=== PATIENT | male | born 1990 | race Caucasian/White ===

== ENCOUNTER 2019-03-09 13:00 | Outpatient (RCR) | payer OTHER, SELFPAY ==
--- NOTE | 2019-01-25 16:52 | PT.OPPOC ---
Current Diagnoses Lower abdominal pain, unspecified (01/25/19) Provider Visit Care Team Role Provider Type Stefano Bull Attending Provider Non-Staff Primary Care Provider Specialty: Medical Address: [employer], [address] [place] [address] [employer] [address], [place], [address] Fax: Email: Plan Of Care PT-OP-T Assessment and Plan Start: 01/24/19 16:32 Freq: Status: Active Protocol: Document 01/25/19 13:44 [facility] (Rec: 01/26/19 07:48 [facility] [id number]) Physical Therapy Assessment Rehab Potential Rehabilitation Potential Good Evaluation Complexity Number of Personal Factors/Comorbidities 3 or More Number of Body Systems Impaired 4 or More Clinical Presentation at Evaluation Evolving Impairments Impairments Activity Tolerance Functional Activities Functional Mobility Gait Pain Posture ROM Soft Tissue Mobility Strength Goals pain Impairment pain Short Term Goal (STG) Pt will be indep with self myofascial release in order to work on scar restrictions at home. STG Duration 02/25/19 Snf Goal (LTG) Pt will be able to have BM, sexual activity, workout and do his typical daily activities without inc pain. LTG Duration 03/27/19 strength Impairment strength Short Term Goal (STG) Pt will be indep with HEP STG Duration 02/25/19 [facility] Goal (LTG) Pt will have 5/5 B LE strength without pain allowing him to return to a gym program and lifting activities without pain. LTG Duration 03/27/19 range Impairment ROM Short Term Goal (STG) Pt will be able to inc hip ROM to 90 deg flex with knee bent without pain and feel HS stretch with SLR rather than ant groin/abdominal pain. STG Duration 02/25/19 Snf Goal (LTG) Pt will be able to have enough hip ROM allowing him to sit in a chair extended without inc in pain. LTG Duration 03/27/19 Assessment Summary Assessment Pt presents 2 years s/p bilateral inguinal hernia repair and 5 months s/p removal of mesh and replacement of new mesh. He underwent PT previously with focus on exercise & deep scar mobilization without much change. 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 He has noted pain with sexual activity, and with bowel movements. He would benefit from skilled PT to address these dyfunctions in order to improve his mobility and his overall activity tolerance. Physical Therapy Plan Frequency and Duration Frequency of Treatment 2x/Week Duration of Treatment 2 months Plan of Care Start Date 01/25/19 Plan of Care End Date 03/27/19 Therapeutic Interventions Therapeutic Interventions Aquatic Therapy Gait Training Home Exercise Program Joint Mobilizations Manual Therapy Neuromuscular Re-education Self-Care/Home Management Soft Tissue Mobilization Taping Therapeutic Activities Therapeutic Exercises Modalities Biofeedback Cold Pack/Ice Massage Hot Packs Next Visit Focus/Plan Next Note Type Treatment Note Next Visit Plan Work on core control, hip inf glide, STM to scar Plan of Care Dates Plan of Care Start Date 01/25/19 Plan of Care End Date 03/27/19 Please Sign and Return: I have reviewed this Plan of Care and certify that the skilled therapy services above are required to meet the patient?s needs. Physician Signature Date Printed Name and Credentials Clinical Instructor Signature Printed Name and Credentials
--- NOTE | 2019-01-25 17:52 | PT.OIE ---
Current Diagnoses Lower abdominal pain, unspecified (01/25/19) Provider Visit Care Team Role Provider Type Stefano Bull Attending Provider Non-Staff Primary Care Provider Specialty: Medical Address: [facility], [address] [place], [place] [address], [place], [address] Fax: Email: Physical Therapy Initial Evaluation PT-OP-A Visit Information Start: 01/24/19 16:32 Freq: Status: Active Protocol: Document 01/25/19 13:44 [facility] (Rec: 01/25/19 14:38 [facility] [id number]) Out-Patient Physical Therapy Visit Information Visit Information Visit Type Initial Evaluation Visit Start Time 13:45 Visit Stop Time 14:35 Total Visit Minutes 50 Visit Number 1 Number of PROMOTION SPECIALIST Visits 0 PT-OP-B Current Condition Start: 01/24/19 16:32 Freq: Status: Active Protocol: Document 01/25/19 13:44 [facility] (Rec: 01/25/19 14:38 [facility] [id number]) Current Condition History of Current Condition History of Current Condition January 2017 he had a double inguinal hernia repair and 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 When he came back 6 months later the pain had gotten bad and limited him signficantly. He tried PT where he did some light lifting and stretching, but it didn't help at all. Pt had surgery again Aug 08 2018 where they just replaced the mesh etc. [place], manual, stretching & strenghtening. Pt reports if he sits too long , lifts, or flying pain is worse but its been constant. Pt reports if he pushed himself too far with PT, he would get a sharp pain. Treatment Goals Patient/Caregiver Goals Get back to hiking, be able to backpack, back to a physical training that he can lift weights PT-OP-C Subjective Start: 01/24/19 16:32 Freq: Status: Active Protocol: Document 01/25/19 13:44 [facility] (Rec: 01/25/19 14:38 [facility] [id number]) OP-PT Pain Assessment Location lower abdomen Pain Location Details lower abdomen toward groin & along B lat iliac crests Scale Used Numeric (1 - 10) Description Sharp Description- Other 4 at lowest and 7 with aggrevation Frequency Constant Radiating Location to testicles Pain Aggravating Factors Sitting Other Pain Aggravating Factors gas, bowel movement, sexual activity, lifting, sleep on side Pain Alleviating Factors Medication Other Pain Alleviating Factors very extended child's pose PT-OP-F Manual Assessment Start: 01/24/19 16:32 Freq: Status: Active Protocol: Document 01/25/19 13:44 [facility] (Rec: 01/25/19 17:55 [facility] [id number]) Manual Assessments Soft Tissue Assessment Soft Tissue Mobility Assessment myofascial tightness across abdomen & lat iliac crests. Significant scar tissue formation under B scars with dec overall mobility Joint Mobility Assessment Joint Mobility Assessment Equal height illiac crests PT-OP-G Mobility & Gait Start: 01/24/19 16:32 Freq: Status: Active Protocol: Document 01/25/19 13:44 [facility] (Rec: 01/25/19 14:38 [facility] [id number]) OP Gait Assessment Comments Gait Comments Pt amb w/ stiffer and lack of pelvis movement on R jessie with excessive L rotation with push off. PT-OP-J Posture/Palpation/Skin Start: 01/24/19 16:32 Freq: Status: Active Protocol: Document 01/25/19 13:44 [facility] (Rec: 01/25/19 17:56 [facility] [id number]) Posture Evaluation Comments Posture Comments Inc kyphosis & forward rounding of shoulders PT-OP-K Range of Motion Start: 01/24/19 16:32 Freq: Status: Active Protocol: Document 01/25/19 13:44 [facility] (Rec: 01/25/19 14:38 [facility] [id number]) Lumbar Spine Range of Motion Lumbar Spine Active Degrees Flexion 75 Extension 45 Lateral Flexion Left 35 Lateral Flexion Right 35 Comments pull in R side w/ext & L SB; WNL rotation Hip Goniometric Range of Motion Hip Measured in Degrees Right Passive Flexion w/Knee Flexed 60 Straight Leg Raise 50 Left Passive Testing Position Supine Flexion w/Knee Flexed 56 Straight Leg Raise 53 PT-OP-L Special Tests Start: 01/24/19 16:32 Freq: Status: Active Protocol: Document 01/25/19 13:44 [facility] (Rec: 01/25/19 14:38 [facility] [id number]) Special Tests Lumbar Spine Special Tests Slump Test Results +on R PT-OP-M Strength Start: 01/24/19 16:32 Freq: Status: Active Protocol: Document 01/25/19 13:44 [facility] (Rec: 01/25/19 14:38 [facility] [id number]) Hip Strength Hip Manual Muscle Testing Right Flexion (L2) 4 Good Extension (S1) 3+ Fair+ Abduction 5 Normal External Rotation 4 Good Internal Rotation 4 Good Comments pain w/ flex & IR Left Flexion (L2) 5 Normal Extension (S1) 3+ Fair+ Abduction 5 Normal External Rotation 4+ Good+ Internal Rotation 4+ Good+ Comments Pain w/IR & ER & ext Knee Strength Knee Manual Muscle Testing Right Flexion (S2) 5 Normal Extension (L3) 5 Normal Left Flexion (S2) 5 Normal Extension (L3) 5 Normal PT-OP-Q Treatments Start: 01/24/19 16:32 Freq: Status: Active Protocol: Document 01/25/19 13:44 [facility] (Rec: 01/25/19 18:01 [facility] [id number]) Therapeutic Exercises Supine Exercises mickey test Supine Exercise Name stretch Side bilateral Reps/Minutes 30 sec Standing Exercises hip flexor s Standing Exercise Name stretch Side bilateral Reps/Minutes 30 sec hold Manual Therapy Treatment Soft Tissue Mobilization ant abdomen Body Location ant abdomen direct pulls Mobilization Type Myofascial Release Intensity/Depth Superficial Body Position Supine Comments w/pt edu of self gentle MFR PT-OP-T Assessment and Plan Start: 01/24/19 16:32 Freq: Status: Active Protocol: Document 01/25/19 13:44 [facility] (Rec: 01/26/19 07:48 [facility] [id number]) Physical Therapy Assessment Rehab Potential Rehabilitation Potential Good Evaluation Complexity Number of Personal Factors/Comorbidities 3 or More Number of Body Systems Impaired 4 or More Clinical Presentation at Evaluation Evolving Impairments Impairments Activity Tolerance Functional Activities Functional Mobility Gait Pain Posture ROM Soft Tissue Mobility Strength Goals pain Impairment pain Short Term Goal (STG) Pt will be indep with self myofascial release in order to work on scar restrictions at home. STG Duration 02/25/19 [facility] Goal (LTG) Pt will be able to have BM, sexual activity, workout and do his typical daily activities without inc pain. LTG Duration 03/27/19 strength Impairment strength Short Term Goal (STG) Pt will be indep with HEP STG Duration 02/25/19 [facility] Goal (LTG) Pt will have 5/5 B LE strength without pain allowing him to return to a gym program and lifting activities without pain. LTG Duration 03/27/19 range Impairment ROM Short Term Goal (STG) Pt will be able to inc hip ROM to 90 deg flex with knee bent without pain and feel HS stretch with SLR rather than ant groin/abdominal pain. STG Duration 02/25/19 [facility] Goal (LTG) Pt will be able to have enough hip ROM allowing him to sit in a chair extended without inc in pain. LTG Duration 03/27/19 Assessment Summary Assessment Pt presents 2 years s/p bilateral inguinal hernia repair and 5 months s/p removal of mesh and replacement of new mesh. He underwent PT previously with focus on exercise & deep scar mobilization without much change. 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 He has noted pain with sexual activity, and with bowel movements. He would benefit from skilled PT to address these dyfunctions in order to improve his mobility and his overall activity tolerance. Physical Therapy Plan Frequency and Duration Frequency of Treatment 2x/Week Duration of Treatment 2 months Plan of Care Start Date 01/25/19 Plan of Care End Date 03/27/19 Therapeutic Interventions Therapeutic Interventions Aquatic Therapy Gait Training Home Exercise Program Joint Mobilizations Manual Therapy Neuromuscular Re-education Self-Care/Home Management Soft Tissue Mobilization Taping Therapeutic Activities Therapeutic Exercises Modalities Biofeedback Cold Pack/Ice Massage Hot Packs Next Visit Focus/Plan Next Note Type Treatment Note Next Visit Plan Work on core control, hip inf glide, STM to scar
--- NOTE | 2019-01-26 07:48 | PT.OIE ---
Current Diagnoses Lower abdominal pain, unspecified (01/25/19) Provider Visit Care Team Role Provider Type Stefano Bull Attending Provider Non-Staff Primary Care Provider Specialty: Medical Address: [employer] [facility], [address] [place], [place] [address], [place], [address] Fax: Email: Physical Therapy Initial Evaluation PT-OP-A Visit Information Start: 01/24/19 16:32 Freq: Status: Active Protocol: Document 01/25/19 13:44 [facility] (Rec: 01/25/19 14:38 [facility] [id number]) Out-Patient Physical Therapy Visit Information Visit Information Visit Type Initial Evaluation Visit Start Time 13:45 Visit Stop Time 14:35 Total Visit Minutes 50 Visit Number 1 Number of MATERIAL ATTENDANT Visits 0 PT-OP-B Current Condition Start: 01/24/19 16:32 Freq: Status: Active Protocol: Document 01/25/19 13:44 [facility] (Rec: 01/25/19 14:38 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 When he came back 6 months later the pain had gotten bad and limited him signficantly. He tried PT where he did some light lifting and stretching, but it didn't help at all. Pt had surgery again Aug 08 2018 where they just replaced the mesh etc. [place], manual, stretching & strenghtening. Pt reports if he sits too long , lifts, or flying pain is worse but its been constant. Pt reports if he pushed himself too far with PT, he would get a sharp pain. Treatment Goals Patient/Caregiver Goals Get back to hiking, be able to backpack, back to a physical training that he can lift weights PT-OP-C Subjective Start: 01/24/19 16:32 Freq: Status: Active Protocol: Document 01/25/19 13:44 [facility] (Rec: 01/25/19 14:38 [facility] [id number]) OP-PT Pain Assessment Location lower abdomen Pain Location Details lower abdomen toward groin & along B lat iliac crests Scale Used Numeric (1 - 10) Description Sharp Description- Other 4 at lowest and 7 with aggrevation Frequency Constant Radiating Location to testicles Pain Aggravating Factors Sitting Other Pain Aggravating Factors gas, bowel movement, sexual activity, lifting, sleep on side Pain Alleviating Factors Medication Other Pain Alleviating Factors very extended child's pose PT-OP-F Manual Assessment Start: 01/24/19 16:32 Freq: Status: Active Protocol: Document 01/25/19 13:44 [facility] (Rec: 01/25/19 17:55 [facility] [id number]) Manual Assessments Soft Tissue Assessment Soft Tissue Mobility Assessment myofascial tightness across abdomen & lat iliac crests. Significant scar tissue formation under B scars with dec overall mobility Joint Mobility Assessment Joint Mobility Assessment Equal height illiac crests PT-OP-G Mobility & Gait Start: 01/24/19 16:32 Freq: Status: Active Protocol: Document 01/25/19 13:44 [facility] (Rec: 01/25/19 14:38 [facility] [id number]) OP Gait Assessment Comments Gait Comments Pt amb w/ stiffer and lack of pelvis movement on R jessie with excessive L rotation with push off. PT-OP-J Posture/Palpation/Skin Start: 01/24/19 16:32 Freq: Status: Active Protocol: Document 01/25/19 13:44 [facility] (Rec: 01/25/19 17:56 [facility] [id number]) Posture Evaluation Comments Posture Comments Inc kyphosis & forward rounding of shoulders PT-OP-K Range of Motion Start: 01/24/19 16:32 Freq: Status: Active Protocol: Document 01/25/19 13:44 [facility] (Rec: 01/25/19 14:38 [facility] [id number]) Lumbar Spine Range of Motion Lumbar Spine Active Degrees Flexion 75 Extension 45 Lateral Flexion Left 35 Lateral Flexion Right 35 Comments pull in R side w/ext & L SB; WNL rotation Hip Goniometric Range of Motion Hip Measured in Degrees Right Passive Flexion w/Knee Flexed 60 Straight Leg Raise 50 Left Passive Testing Position Supine Flexion w/Knee Flexed 56 Straight Leg Raise 53 PT-OP-L Special Tests Start: 01/24/19 16:32 Freq: Status: Active Protocol: Document 01/25/19 13:44 [facility] (Rec: 01/25/19 14:38 [facility] [id number]) Special Tests Lumbar Spine Special Tests Slump Test Results +on R PT-OP-M Strength Start: 01/24/19 16:32 Freq: Status: Active Protocol: Document 01/25/19 13:44 [facility] (Rec: 01/25/19 14:38 [facility] [id number]) Hip Strength Hip Manual Muscle Testing Right Flexion (L2) 4 Good Extension (S1) 3+ Fair+ Abduction 5 Normal External Rotation 4 Good Internal Rotation 4 Good Comments pain w/ flex & IR Left Flexion (L2) 5 Normal Extension (S1) 3+ Fair+ Abduction 5 Normal External Rotation 4+ Good+ Internal Rotation 4+ Good+ Comments Pain w/IR & ER & ext Knee Strength Knee Manual Muscle Testing Right Flexion (S2) 5 Normal Extension (L3) 5 Normal Left Flexion (S2) 5 Normal Extension (L3) 5 Normal PT-OP-Q Treatments Start: 01/24/19 16:32 Freq: Status: Active Protocol: Document 01/25/19 13:44 [facility] (Rec: 01/25/19 18:01 [facility] [id number]) Therapeutic Exercises Supine Exercises mickey test Supine Exercise Name stretch Side bilateral Reps/Minutes 30 sec Standing Exercises hip flexor s Standing Exercise Name stretch Side bilateral Reps/Minutes 30 sec hold Manual Therapy Treatment Soft Tissue Mobilization ant abdomen Body Location ant abdomen direct pulls Mobilization Type Myofascial Release Intensity/Depth Superficial Body Position Supine Comments w/pt edu of self gentle MFR PT-OP-T Assessment and Plan Start: 01/24/19 16:32 Freq: Status: Active Protocol: Document 01/25/19 13:44 [facility] (Rec: 01/26/19 07:48 [facility] [id number]) Physical Therapy Assessment Rehab Potential Rehabilitation Potential Good Evaluation Complexity Number of Personal Factors/Comorbidities 3 or More Number of Body Systems Impaired 4 or More Clinical Presentation at Evaluation Evolving Impairments Impairments Activity Tolerance Functional Activities Functional Mobility Gait Pain Posture ROM Soft Tissue Mobility Strength Goals pain Impairment pain Short Term Goal (STG) Pt will be indep with self myofascial release in order to work on scar restrictions at home. STG Duration 02/25/19 [facility] Goal (LTG) Pt will be able to have BM, sexual activity, workout and do his typical daily activities without inc pain. LTG Duration 03/27/19 strength Impairment strength Short Term Goal (STG) Pt will be indep with HEP STG Duration 02/25/19 [facility] Goal (LTG) Pt will have 5/5 B LE strength without pain allowing him to return to a gym program and lifting activities without pain. LTG Duration 03/27/19 range Impairment ROM Short Term Goal (STG) Pt will be able to inc hip ROM to 90 deg flex with knee bent without pain and feel HS stretch with SLR rather than ant groin/abdominal pain. STG Duration 02/25/19 [facility] Goal (LTG) Pt will be able to have enough hip ROM allowing him to sit in a chair extended without inc in pain. LTG Duration 03/27/19 Assessment Summary Assessment Pt presents 2 years s/p bilateral inguinal hernia repair and 5 months s/p removal of mesh and replacement of new mesh. He underwent PT previously with focus on exercise & deep scar mobilization without much change. 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 He has noted pain with sexual activity, and with bowel movements. He would benefit from skilled PT to address these dyfunctions in order to improve his mobility and his overall activity tolerance. Physical Therapy Plan Frequency and Duration Frequency of Treatment 2x/Week Duration of Treatment 2 months Plan of Care Start Date 01/25/19 Plan of Care End Date 03/27/19 Therapeutic Interventions Therapeutic Interventions Aquatic Therapy Gait Training Home Exercise Program Joint Mobilizations Manual Therapy Neuromuscular Re-education Self-Care/Home Management Soft Tissue Mobilization Taping Therapeutic Activities Therapeutic Exercises Modalities Biofeedback Cold Pack/Ice Massage Hot Packs Next Visit Focus/Plan Next Note Type Treatment Note Next Visit Plan Work on core control, hip inf glide, STM to scar
--- NOTE | 2019-01-26 07:48 | PT.OPPOC ---
Current Diagnoses Lower abdominal pain, unspecified (01/25/19) Provider Visit Care Team Role Provider Type Stefano Bull Attending Provider Non-Staff Primary Care Provider Specialty: Medical Address: [facility], [address] [place] [address] [employer] [address], [place], [address] Fax: Email: Plan Of Care PT-OP-T Assessment and Plan Start: 01/24/19 16:32 Freq: Status: Active Protocol: Document 01/25/19 13:44 [facility] (Rec: 01/26/19 07:48 [facility] [id number]) Physical Therapy Assessment Rehab Potential Rehabilitation Potential Good Evaluation Complexity Number of Personal Factors/Comorbidities 3 or More Number of Body Systems Impaired 4 or More Clinical Presentation at Evaluation Evolving Impairments Impairments Activity Tolerance Functional Activities Functional Mobility Gait Pain Posture ROM Soft Tissue Mobility Strength Goals pain Impairment pain Short Term Goal (STG) Pt will be indep with self myofascial release in order to work on scar restrictions at home. STG Duration 02/25/19 Assisted Goal (LTG) Pt will be able to have BM, sexual activity, workout and do his typical daily activities without inc pain. LTG Duration 03/27/19 strength Impairment strength Short Term Goal (STG) Pt will be indep with HEP STG Duration 02/25/19 [facility] Goal (LTG) Pt will have 5/5 B LE strength without pain allowing him to return to a gym program and lifting activities without pain. LTG Duration 03/27/19 range Impairment ROM Short Term Goal (STG) Pt will be able to inc hip ROM to 90 deg flex with knee bent without pain and feel HS stretch with SLR rather than ant groin/abdominal pain. STG Duration 02/25/19 Assisted Goal (LTG) Pt will be able to have enough hip ROM allowing him to sit in a chair extended without inc in pain. LTG Duration 03/27/19 Assessment Summary Assessment Pt presents 2 years s/p bilateral inguinal hernia repair and 5 months s/p removal of mesh and replacement of new mesh. He underwent PT previously with focus on exercise & deep scar mobilization without much change. 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 He has noted pain with sexual activity, and with bowel movements. He would benefit from skilled PT to address these dyfunctions in order to improve his mobility and his overall activity tolerance. Physical Therapy Plan Frequency and Duration Frequency of Treatment 2x/Week Duration of Treatment 2 months Plan of Care Start Date 01/25/19 Plan of Care End Date 03/27/19 Therapeutic Interventions Therapeutic Interventions Aquatic Therapy Gait Training Home Exercise Program Joint Mobilizations Manual Therapy Neuromuscular Re-education Self-Care/Home Management Soft Tissue Mobilization Taping Therapeutic Activities Therapeutic Exercises Modalities Biofeedback Cold Pack/Ice Massage Hot Packs Next Visit Focus/Plan Next Note Type Treatment Note Next Visit Plan Work on core control, hip inf glide, STM to scar Plan of Care Dates Plan of Care Start Date 01/25/19 Plan of Care End Date 03/27/19 Please Sign and Return: I have reviewed this Plan of Care and certify that the skilled therapy services above are required to meet the patient?s needs. Physician Signature Date Printed Name and Credentials Clinical Instructor Signature Printed Name and Credentials
--- NOTE | 2019-01-31 15:05 | PT.OTN ---
Current Diagnoses Lower abdominal pain, unspecified (01/31/19) Physical Therapy Treatment Note PT-OP-A Visit Information Start: 01/24/19 16:32 Freq: Status: Active Protocol: Document 01/31/19 13:02 [facility] (Rec: 01/31/19 13:45 [facility] [id number]) Out-Patient Physical Therapy Visit Information Visit Information Visit Type Treatment Note Visit Start Time 13:00 Visit Stop Time 13:45 Total Visit Minutes 45 Visit Number 2 Number of PHYSICAL TRAINER Visits 0 PT-OP-B Current Condition Start: 01/24/19 16:32 Freq: Status: Active Protocol: Document 01/25/19 13:44 [facility] (Rec: 01/25/19 14:38 [facility] [id number]) Current Condition History of Current Condition History of Current Condition January 2017 he had a double inguinal hernia repair and 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 When he came back 6 months later the pain had gotten bad and limited him signficantly. He tried PT where he did some light lifting and stretching, but it didn't help at all. Pt had surgery again Aug 08 2018 where they just replaced the mesh etc. [place] cardio, manual, stretching & strenghtening. Pt reports if he sits too long , lifts, or flying pain is worse but its been constant. Pt reports if he pushed himself too far with PT, he would get a sharp pain. Treatment Goals Patient/Caregiver Goals Get back to hiking, be able to backpack, back to a physical training that he can lift weights PT-OP-C Subjective Start: 01/24/19 16:32 Freq: Status: Active Protocol: Document 01/31/19 13:02 [facility] (Rec: 01/31/19 13:45 [facility] [id number]) OP-PT Subjective Patient Comments Patient Comments Pt reports soreness after last session. Reports stretches help a lot. PT-OP-F Manual Assessment Start: 01/24/19 16:32 Freq: Status: Active Protocol: Document 01/25/19 13:44 [facility] (Rec: 01/25/19 17:55 [facility] [id number]) Manual Assessments Soft Tissue Assessment Soft Tissue Mobility Assessment myofascial tightness across abdomen & lat iliac crests. Significant scar tissue formation under B scars with dec overall mobility Joint Mobility Assessment Joint Mobility Assessment Equal height illiac crests PT-OP-G Mobility & Gait Start: 01/24/19 16:32 Freq: Status: Active Protocol: Document 01/25/19 13:44 [facility] (Rec: 01/25/19 14:38 [facility] [id number]) OP Gait Assessment Comments Gait Comments Pt amb w/ stiffer and lack of pelvis movement on R jessie with excessive L rotation with push off. PT-OP-J Posture/Palpation/Skin Start: 01/24/19 16:32 Freq: Status: Active Protocol: Document 01/25/19 13:44 [facility] (Rec: 01/25/19 17:56 [facility] [email or web address]) Posture Evaluation Comments Posture Comments Inc kyphosis & forward rounding of shoulders PT-OP-K Range of Motion Start: 01/24/19 16:32 Freq: Status: Active Protocol: Document 01/25/19 13:44 [facility] (Rec: 01/25/19 14:38 [facility] [id number]) Lumbar Spine Range of Motion Lumbar Spine Active Degrees Flexion 75 Extension 45 Lateral Flexion Left 35 Lateral Flexion Right 35 Comments pull in R side w/ext & L SB; WNL rotation Hip Goniometric Range of Motion Hip Measured in Degrees Right Passive Flexion w/Knee Flexed 60 Straight Leg Raise 50 Left Passive Testing Position Supine Flexion w/Knee Flexed 56 Straight Leg Raise 53 PT-OP-L Special Tests Start: 01/24/19 16:32 Freq: Status: Active Protocol: Document 01/25/19 13:44 [facility] (Rec: 01/25/19 14:38 [facility] [id number]) Special Tests Lumbar Spine Special Tests Slump Test Results +on R PT-OP-M Strength Start: 01/24/19 16:32 Freq: Status: Active Protocol: Document 01/25/19 13:44 [facility] (Rec: 01/25/19 14:38 [facility] [id number]) Hip Strength Hip Manual Muscle Testing Right Flexion (L2) 4 Good Extension (S1) 3+ Fair+ Abduction 5 Normal External Rotation 4 Good Internal Rotation 4 Good Comments pain w/ flex & IR Left Flexion (L2) 5 Normal Extension (S1) 3+ Fair+ Abduction 5 Normal External Rotation 4+ Good+ Internal Rotation 4+ Good+ Comments Pain w/IR & ER & ext Knee Strength Knee Manual Muscle Testing Right Flexion (S2) 5 Normal Extension (L3) 5 Normal Left Flexion (S2) 5 Normal Extension (L3) 5 Normal PT-OP-Q Treatments Start: 01/24/19 16:32 Freq: Status: Active Protocol: Document 01/31/19 13:02 [facility] (Rec: 01/31/19 15:04 [facility] [id number]) Therapeutic Exercises Supine Exercises hip flex Supine Exercise Name isometric BLE press Side bilateral Reps/Minutes 30 sec bridge Supine Exercise Name bridge w/alt knee ext Side bilateral Reps/Minutes 15 Standing Exercises wall posture Standing Exercise Name wall roll up with 90/90 ER of UE Reps/Minutes 10 Therapeutic Activity Therapeutic Activity sitting posture Name supported and unsupported positioning Manual Therapy Treatment Soft Tissue Mobilization iliacus Body Location iliacus Mobilization Type Sustained Pressure ant abdomen Body Location ant abdomen direct pulls Mobilization Type Myofascial Release Intensity/Depth Superficial Body Position Supine Comments w/LE ER/IR in hooklying & pelvic tilts Joint Mobilizations hip Joint hip Direction inf functional mobilization (c /r) B PT-OP-T Assessment and Plan Start: 01/24/19 16:32 Freq: Status: Active Protocol: Document 01/31/19 13:02 [facility] (Rec: 01/31/19 15:04 [facility] [email or web address]) Physical Therapy Assessment Goals pain Impairment pain Short Term Goal (STG) Pt will be indep with self myofascial release in order to work on scar restrictions at home. STG Duration 02/25/19 Penitentiary Goal (LTG) Pt will be able to have BM, sexual activity, workout and do his typical daily activities without inc pain. LTG Duration 03/27/19 strength Impairment strength Short Term Goal (STG) Pt will be indep with HEP STG Duration 02/25/19 Penitentiary Goal (LTG) Pt will have 5/5 B LE strength without pain allowing him to return to a gym program and lifting activities without pain. LTG Duration 03/27/19 range Impairment ROM Short Term Goal (STG) Pt will be able to inc hip ROM to 90 deg flex with knee bent without pain and feel HS stretch with SLR rather than ant groin/abdominal pain. STG Duration 02/25/19 Radon Inspector Goal (LTG) Pt will be able to have enough hip ROM allowing him to sit in a chair extended without inc in pain. LTG Duration 03/27/19 Assessment Summary Assessment Pt able to tolerate progression of exercises today w/o c/o pain. Pt had improved hip flex from ~70 deg B (w/ alt knee flex & foot on table) to about 110 degrees after iliacus mobilization & hip inf glide. Physical Therapy Plan Frequency and Duration Frequency of Treatment 2x/Week Duration of Treatment 2 months Plan of Care Start Date 01/25/19 Plan of Care End Date 03/27/19 Next Visit Focus/Plan Next Note Type Treatment Note Next Visit Plan cont to work on fascial mobility, cont to advance stability & flexibility
--- NOTE | 2019-02-03 15:13 | PT.OTN ---
Current Diagnoses Lower abdominal pain, unspecified (02/03/19) Physical Therapy Treatment Note PT-OP-A Visit Information Start: 01/24/19 16:32 Freq: Status: Active Protocol: Document 02/03/19 13:00 AMB (Rec: 02/03/19 15:13 [facility] [email or web address]) Out-Patient Physical Therapy Visit Information Visit Information Visit Type Treatment Note Visit Start Time 13:00 Visit Stop Time 13:45 Total Visit Minutes 45 Visit Number 3 Number of SLICER MACHINE OPERATOR Visits 0 PT-OP-B Current Condition Start: 01/24/19 16:32 Freq: Status: Active Protocol: Document 01/25/19 13:44 [facility] (Rec: 01/25/19 14:38 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 When he came back 6 months later the pain had gotten bad and limited him signficantly. He tried PT where he did some light lifting and stretching, but it didn't help at all. Pt had surgery again Aug 08 2018 where they just replaced the mesh etc. [place] and did cardio, manual, stretching & strenghtening. Pt reports if he sits too long , lifts, or flying pain is worse but its been constant. Pt reports if he pushed himself too far with PT, he would get a sharp pain. Treatment Goals Patient/Caregiver Goals Get back to hiking, be able to backpack, back to a physical training that he can lift weights PT-OP-C Subjective Start: 01/24/19 16:32 Freq: Status: Active Protocol: Document 02/03/19 13:00 AMB (Rec: 02/03/19 15:13 AMB [email or web address]) OP-PT Subjective Patient Comments Patient Comments Pt reports felt pretty good after last session, is definitely icing at home afterwards. Seeing this PT because reported painful bowel movements and painful intercourse during eval. Pt states that pain with bowel movement and intercourse is at surgery sites and slightly more distally into hips. Does report intermittent tingling/ decreased sensation distal to surgery site but not in perineal or genital area. Thinks that pain with intercourse is more movement related, denies specific pain with ejaculation, more the pain of moving. Does report pain when both bowel and bladder are full, describes pain as a pressure over lower abdomen at at surgical sites. PT-OP-F Manual Assessment Start: 01/24/19 16:32 Freq: Status: Active Protocol: Document 01/25/19 13:44 [facility] (Rec: 01/25/19 17:55 [facility] [id number]) Manual Assessments Soft Tissue Assessment Soft Tissue Mobility Assessment myofascial tightness across abdomen & lat iliac crests. Significant scar tissue formation under B scars with dec overall mobility Joint Mobility Assessment Joint Mobility Assessment Equal height illiac crests PT-OP-G Mobility & Gait Start: 01/24/19 16:32 Freq: Status: Active Protocol: Document 01/25/19 13:44 [facility] (Rec: 01/25/19 14:38 [facility] [id number]) OP Gait Assessment Comments Gait Comments Pt amb w/ stiffer and lack of pelvis movement on R jessie with excessive L rotation with push off. PT-OP-J Posture/Palpation/Skin Start: 01/24/19 16:32 Freq: Status: Active Protocol: Document 01/25/19 13:44 [facility] (Rec: 01/25/19 17:56 [facility] [id number]) Posture Evaluation Comments Posture Comments Inc kyphosis & forward rounding of shoulders PT-OP-K Range of Motion Start: 01/24/19 16:32 Freq: Status: Active Protocol: Document 01/25/19 13:44 [facility] (Rec: 01/25/19 14:38 [facility] [id number]) Lumbar Spine Range of Motion Lumbar Spine Active Degrees Flexion 75 Extension 45 Lateral Flexion Left 35 Lateral Flexion Right 35 Comments pull in R side w/ext & L SB; WNL rotation Hip Goniometric Range of Motion Hip Measured in Degrees Right Passive Flexion w/Knee Flexed 60 Straight Leg Raise 50 Left Passive Testing Position Supine Flexion w/Knee Flexed 56 Straight Leg Raise 53 PT-OP-L Special Tests Start: 01/24/19 16:32 Freq: Status: Active Protocol: Document 01/25/19 13:44 [facility] (Rec: 01/25/19 14:38 [facility] [id number]) Special Tests Lumbar Spine Special Tests Slump Test Results +on R PT-OP-M Strength Start: 01/24/19 16:32 Freq: Status: Active Protocol: Document 01/25/19 13:44 [facility] (Rec: 01/25/19 14:38 [facility] [id number]) Hip Strength Hip Manual Muscle Testing Right Flexion (L2) 4 Good Extension (S1) 3+ Fair+ Abduction 5 Normal External Rotation 4 Good Internal Rotation 4 Good Comments pain w/ flex & IR Left Flexion (L2) 5 Normal Extension (S1) 3+ Fair+ Abduction 5 Normal External Rotation 4+ Good+ Internal Rotation 4+ Good+ Comments Pain w/IR & ER & ext Knee Strength Knee Manual Muscle Testing Right Flexion (S2) 5 Normal Extension (L3) 5 Normal Left Flexion (S2) 5 Normal Extension (L3) 5 Normal PT-OP-Q Treatments Start: 01/24/19 16:32 Freq: Status: Active Protocol: Document 02/03/19 13:00 AMB (Rec: 02/03/19 15:13 AMB [email or web address]) Therapeutic Exercises Supine Exercises hip flex Supine Exercise Name isometric BLE press Side bilateral Reps/Minutes 30 sec mickey test Supine Exercise Name stretch Side bilateral Reps/Minutes 30 sec Manual Therapy Treatment Soft Tissue Mobilization 1 Body Location ILU circular massage Comments instructed in self massage for when feeling bowel/bladder pressure iliacus Body Location iliacus Mobilization Type Sustained Pressure ant abdomen Body Location ant abdomen direct pulls Mobilization Type Myofascial Release Intensity/Depth Superficial Body Position Supine Comments pelvic tilts, PT-OP-T Assessment and Plan Start: 01/24/19 16:32 Freq: Status: Active Protocol: Document 02/03/19 13:00 AMB (Rec: 02/03/19 15:13 AMB [email or web address]) Physical Therapy Assessment Assessment Summary Assessment Pt did have pain today with direct pressure over scar tissue, did report pain over hip flexor with hip flexion AROM. Instructed in bowel massage, and nature of scar tissue, neural entrapment. Physical Therapy Plan Next Visit Focus/Plan Next Note Type Treatment Note Next Visit Plan cont to work on fascial mobility, cont to advance stability & flexibility
--- NOTE | 2019-02-09 16:25 | PT.OTN ---
Current Diagnoses Lower abdominal pain, unspecified (02/09/19) Physical Therapy Treatment Note PT-OP-A Visit Information Start: 01/24/19 16:32 Freq: Status: Active Protocol: Document 02/09/19 13:45 AMB (Rec: 02/09/19 16:25 AMB [email or web address]) Out-Patient Physical Therapy Visit Information Visit Information Visit Type Treatment Note Visit Start Time 13:00 Visit Stop Time 13:45 Total Visit Minutes 45 Visit Number 4 Number of ROLL FORMING MACHINE SET UP MECHANIC Visits 0 PT-OP-B Current Condition Start: 01/24/19 16:32 Freq: Status: Active Protocol: Document 01/25/19 13:44 [facility] (Rec: 01/25/19 14:38 [facility] [id number]) Current Condition History of Current Condition History of Current Condition January 2017 he had a double inguinal hernia repair and 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 When he came back 6 months later the pain had gotten bad and limited him signficantly. He tried PT where he did some light lifting and stretching, but it didn't help at all. Pt had surgery again Aug 08 2018 where they just replaced the mesh etc. [place] did cardio, manual, stretching & strenghtening. Pt reports if he sits too long , lifts, or flying pain is worse but its been constant. Pt reports if he pushed himself too far with PT, he would get a sharp pain. Treatment Goals Patient/Caregiver Goals Get back to hiking, be able to backpack, back to a physical training that he can lift weights PT-OP-C Subjective Start: 01/24/19 16:32 Freq: Status: Active Protocol: Document 02/09/19 13:45 AMB (Rec: 02/09/19 16:25 AMB [email or web address]) OP-PT Subjective Patient Comments Patient Comments Pt reports increased soreness after last visit. Feels that scar tissue is different and less tight, but noticing more sharp pain with sidelying and sitting, especially on the right. PT-OP-F Manual Assessment Start: 01/24/19 16:32 Freq: Status: Active Protocol: Document 01/25/19 13:44 [facility] (Rec: 01/25/19 17:55 [facility] [email or web address]) Manual Assessments Soft Tissue Assessment Soft Tissue Mobility Assessment myofascial tightness across abdomen & lat iliac crests. Significant scar tissue formation under B scars with dec overall mobility Joint Mobility Assessment Joint Mobility Assessment Equal height illiac crests PT-OP-G Mobility & Gait Start: 01/24/19 16:32 Freq: Status: Active Protocol: Document 01/25/19 13:44 [facility] (Rec: 01/25/19 14:38 [facility] [id number]) OP Gait Assessment Comments Gait Comments Pt amb w/ stiffer and lack of pelvis movement on R jessie with excessive L rotation with push off. PT-OP-J Posture/Palpation/Skin Start: 01/24/19 16:32 Freq: Status: Active Protocol: Document 01/25/19 13:44 [facility] (Rec: 01/25/19 17:56 [facility] [email or web address]) Posture Evaluation Comments Posture Comments Inc kyphosis & forward rounding of shoulders PT-OP-K Range of Motion Start: 01/24/19 16:32 Freq: Status: Active Protocol: Document 01/25/19 13:44 [facility] (Rec: 01/25/19 14:38 [facility] [id number]) Lumbar Spine Range of Motion Lumbar Spine Active Degrees Flexion 75 Extension 45 Lateral Flexion Left 35 Lateral Flexion Right 35 Comments pull in R side w/ext & L SB; WNL rotation Hip Goniometric Range of Motion Hip Measured in Degrees Right Passive Flexion w/Knee Flexed 60 Straight Leg Raise 50 Left Passive Testing Position Supine Flexion w/Knee Flexed 56 Straight Leg Raise 53 PT-OP-L Special Tests Start: 01/24/19 16:32 Freq: Status: Active Protocol: Document 01/25/19 13:44 [facility] (Rec: 01/25/19 14:38 [facility] [id number]) Special Tests Lumbar Spine Special Tests Slump Test Results +on R PT-OP-M Strength Start: 01/24/19 16:32 Freq: Status: Active Protocol: Document 01/25/19 13:44 [facility] (Rec: 01/25/19 14:38 [facility] [id number]) Hip Strength Hip Manual Muscle Testing Right Flexion (L2) 4 Good Extension (S1) 3+ Fair+ Abduction 5 Normal External Rotation 4 Good Internal Rotation 4 Good Comments pain w/ flex & IR Left Flexion (L2) 5 Normal Extension (S1) 3+ Fair+ Abduction 5 Normal External Rotation 4+ Good+ Internal Rotation 4+ Good+ Comments Pain w/IR & ER & ext Knee Strength Knee Manual Muscle Testing Right Flexion (S2) 5 Normal Extension (L3) 5 Normal Left Flexion (S2) 5 Normal Extension (L3) 5 Normal PT-OP-Q Treatments Start: 01/24/19 16:32 Freq: Status: Active Protocol: Document 02/09/19 13:45 AMB (Rec: 02/09/19 16:25 AMB [email or web address]) Therapeutic Exercises Supine Exercises 2 Supine Exercise Name roll out Comments no resistance, but pt had pain 1 Supine Exercise Name transversus contract Reps/Minutes 5x10 hold Comments tends to bulge abs out mickey test Supine Exercise Name stretch Side bilateral Reps/Minutes 30 sec Manual Therapy Treatment Soft Tissue Mobilization ant abdomen Body Location ant abdomen direct pulls Mobilization Type Myofascial Release Intensity/Depth Superficial Body Position Supine Comments pelvic tilts, LE ER/ IR Manual Traction Long axis distraction Details R Body Position Supine Reps/Duration 15x2 Taping 1 Body Location kinesiotape Comments I strip over R scar, 50% stretch Other Other Manual Treatments contract relax hip flexion PT-OP-T Assessment and Plan Start: 01/24/19 16:32 Freq: Status: Active Protocol: Document 02/09/19 13:45 AMB (Rec: 02/09/19 16:25 AMB [email or web address]) Physical Therapy Assessment Assessment Summary Assessment Pt very tender today, so backed off on direct myofascial release over scars. Pt reports pain with most movement requiring abdominal stabilization today. Physical Therapy Plan Next Visit Focus/Plan Next Note Type Treatment Note Next Visit Plan cont to work on fascial mobility, cont to advance stability & flexibility
--- NOTE | 2019-02-16 15:53 | PT.OTN ---
Current Diagnoses Lower abdominal pain, unspecified (02/16/19) Physical Therapy Treatment Note PT-OP-A Visit Information Start: 01/24/19 16:32 Freq: Status: Active Protocol: Document 02/16/19 15:36 [facility] (Rec: 02/16/19 15:53 [facility] [id number]) Out-Patient Physical Therapy Visit Information Visit Information Visit Type Treatment Note Visit Start Time 14:30 Visit Stop Time 15:15 Total Visit Minutes 45 Visit Number 5 Number of SACK SORTER Visits 0 PT-OP-B Current Condition Start: 01/24/19 16:32 Freq: Status: Active Protocol: Document 01/25/19 13:44 [facility] (Rec: 01/25/19 14:38 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 When he came back 6 months later the pain had gotten bad and limited him signficantly. He tried PT where he did some light lifting and stretching, but it didn't help at all. Pt had surgery again Aug 08 2018 where they just replaced the mesh etc. [place] cardio, manual, stretching & strenghtening. Pt reports if he sits too long , lifts, or flying pain is worse but its been constant. Pt reports if he pushed himself too far with PT, he would get a sharp pain. Treatment Goals Patient/Caregiver Goals Get back to hiking, be able to backpack, back to a physical training that he can lift weights PT-OP-C Subjective Start: 01/24/19 16:32 Freq: Status: Active Protocol: Document 02/16/19 15:36 [facility] (Rec: 02/16/19 15:53 [facility] [id number]) OP-PT Subjective Patient Comments Patient Comments Pt reports he is not flared like he was last visit and is back to his baseline as when he came in to PT. He has been trying to work on posture and stretches at home. Sitting can flare up his nerve pain and he is trying to stand frequently at work to stretch PT-OP-F Manual Assessment Start: 01/24/19 16:32 Freq: Status: Active Protocol: Document 01/25/19 13:44 [facility] (Rec: 01/25/19 17:55 [facility] [id number]) Manual Assessments Soft Tissue Assessment Soft Tissue Mobility Assessment myofascial tightness across abdomen & lat iliac crests. Significant scar tissue formation under B scars with dec overall mobility Joint Mobility Assessment Joint Mobility Assessment Equal height illiac crests PT-OP-G Mobility & Gait Start: 01/24/19 16:32 Freq: Status: Active Protocol: Document 01/25/19 13:44 [facility] (Rec: 01/25/19 14:38 [facility] [id number]) OP Gait Assessment Comments Gait Comments Pt amb w/ stiffer and lack of pelvis movement on R jessie with excessive L rotation with push off. PT-OP-J Posture/Palpation/Skin Start: 01/24/19 16:32 Freq: Status: Active Protocol: Document 01/25/19 13:44 [facility] (Rec: 01/25/19 17:56 [facility] [id number]) Posture Evaluation Comments Posture Comments Inc kyphosis & forward rounding of shoulders PT-OP-K Range of Motion Start: 01/24/19 16:32 Freq: Status: Active Protocol: Document 01/25/19 13:44 [facility] (Rec: 01/25/19 14:38 [facility] [id number]) Lumbar Spine Range of Motion Lumbar Spine Active Degrees Flexion 75 Extension 45 Lateral Flexion Left 35 Lateral Flexion Right 35 Comments pull in R side w/ext & L SB; WNL rotation Hip Goniometric Range of Motion Hip Measured in Degrees Right Passive Flexion w/Knee Flexed 60 Straight Leg Raise 50 Left Passive Testing Position Supine Flexion w/Knee Flexed 56 Straight Leg Raise 53 PT-OP-L Special Tests Start: 01/24/19 16:32 Freq: Status: Active Protocol: Document 01/25/19 13:44 [facility] (Rec: 01/25/19 14:38 [facility] [id number]) Special Tests Lumbar Spine Special Tests Slump Test Results +on R PT-OP-M Strength Start: 01/24/19 16:32 Freq: Status: Active Protocol: Document 01/25/19 13:44 [facility] (Rec: 01/25/19 14:38 [facility] [id number]) Hip Strength Hip Manual Muscle Testing Right Flexion (L2) 4 Good Extension (S1) 3+ Fair+ Abduction 5 Normal External Rotation 4 Good Internal Rotation 4 Good Comments pain w/ flex & IR Left Flexion (L2) 5 Normal Extension (S1) 3+ Fair+ Abduction 5 Normal External Rotation 4+ Good+ Internal Rotation 4+ Good+ Comments Pain w/IR & ER & ext Knee Strength Knee Manual Muscle Testing Right Flexion (S2) 5 Normal Extension (L3) 5 Normal Left Flexion (S2) 5 Normal Extension (L3) 5 Normal PT-OP-Q Treatments Start: 01/24/19 16:32 Freq: Status: Active Protocol: Document 02/16/19 15:36 [facility] (Rec: 02/16/19 15:53 [facility] [email or web address]) Therapeutic Exercises Supine Exercises 3 Supine Exercise Name foam roll stretch Comments tried 1/2 roll first but Placido could not feel much stretch mickey test Supine Exercise Name stretch Side bilateral Reps/Minutes 1-2 min Comments no nerve pain, manual stretch Prone Exercises 1 Prone Exercise Name cobra stretch Manual Therapy Treatment Soft Tissue Mobilization 3 Body Location adductor release Comments myofascial tightness felt at the pubic ramus attachment on the right 2 Body Location MFR over the bladder Comments pt has c/o bladder urgency and pain increases with a full bladder 1 Body Location ILU circular massage Comments instructed in self massage for when feeling bowel/bladder pressure ant abdomen Body Location ant abdomen direct pulls Mobilization Type Myofascial Release Intensity/Depth Superficial Body Position Supine Comments pelvic tilts, LE ER/ IR PT-OP-T Assessment and Plan Start: 01/24/19 16:32 Freq: Status: Active Protocol: Document 02/16/19 15:36 [facility] (Rec: 02/16/19 15:53 [facility] [email or web address]) Physical Therapy Assessment Assessment Summary Assessment Placido was not in a flare up today so myofascial release was attempted again, I worked the myofascial tissue over the bladder, right greater than left abdominal wall and right adductors. He tolerated this all well. He is very tight in the right adductor attachment to the pubic ramus on the right side. We worked on iliopsoas stretching adding in some adductor stretch and also started the foam roll which he tolerated well today. Physical Therapy Plan Frequency and Duration Frequency of Treatment 2x/Week Duration of Treatment 2 months Plan of Care Start Date 01/25/19 Plan of Care End Date 03/27/19 Therapeutic Interventions Therapeutic Interventions Aquatic Therapy Gait Training Home Exercise Program Joint Mobilizations Manual Therapy Neuromuscular Re-education Self-Care/Home Management Soft Tissue Mobilization Taping Therapeutic Activities Therapeutic Exercises Modalities Biofeedback Cold Pack/Ice Massage Hot Packs Next Visit Focus/Plan Next Note Type Treatment Note Next Visit Plan continue to work on opening up the abdominal fascia and anterior ches. He can feel a stretch on the right side with right arm flexion so adding in stretching as tolerated would be beneficial
--- NOTE | 2019-02-24 13:21 | PT.OTN ---
Current Diagnoses Lower abdominal pain, unspecified (02/24/19) Physical Therapy Treatment Note PT-OP-A Visit Information Start: 01/24/19 16:32 Freq: Status: Active Protocol: Document 02/24/19 10:30 [facility] (Rec: 02/24/19 13:21 [facility] [email or web address]) Out-Patient Physical Therapy Visit Information Visit Information Visit Type Treatment Note Visit Start Time 10:30 Visit Stop Time 11:15 Total Visit Minutes 45 Visit Number 6 Number of SOFT SUGAR CUTTER Visits 1 PT-OP-B Current Condition Start: 01/24/19 16:32 Freq: Status: Active Protocol: Document 01/25/19 13:44 [facility] (Rec: 01/25/19 14:38 [facility] [id number]) Current Condition History of Current Condition History of Current Condition January 2017 he had a double inguinal hernia repair and 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 When he came back 6 months later the pain had gotten bad and limited him signficantly. He tried PT where he did some light lifting and stretching, but it didn't help at all. Pt had surgery again Aug 08 2018 where they just replaced the mesh etc. [place] did cardio, manual, stretching & strenghtening. Pt reports if he sits too long , lifts, or flying pain is worse but its been constant. Pt reports if he pushed himself too far with PT, he would get a sharp pain. Treatment Goals Patient/Caregiver Goals Get back to hiking, be able to backpack, back to a physical training that he can lift weights PT-OP-C Subjective Start: 01/24/19 16:32 Freq: Status: Active Protocol: Document 02/24/19 10:30 [facility] (Rec: 02/24/19 13:21 [facility] [email or web address]) OP-PT Subjective Patient Comments Patient Comments Pt states he feels decrease in tightness and has ordered a foam roll for stretching at home. PT-OP-F Manual Assessment Start: 01/24/19 16:32 Freq: Status: Active Protocol: Document 01/25/19 13:44 [facility] (Rec: 01/25/19 17:55 [facility] [email or web address]) Manual Assessments Soft Tissue Assessment Soft Tissue Mobility Assessment myofascial tightness across abdomen & lat iliac crests. Significant scar tissue formation under B scars with dec overall mobility Joint Mobility Assessment Joint Mobility Assessment Equal height illiac crests PT-OP-G Mobility & Gait Start: 01/24/19 16:32 Freq: Status: Active Protocol: Document 01/25/19 13:44 [facility] (Rec: 01/25/19 14:38 [facility] [id number]) OP Gait Assessment Comments Gait Comments Pt amb w/ stiffer and lack of pelvis movement on R jessie with excessive L rotation with push off. PT-OP-J Posture/Palpation/Skin Start: 01/24/19 16:32 Freq: Status: Active Protocol: Document 01/25/19 13:44 [facility] (Rec: 01/25/19 17:56 [facility] [id number]) Posture Evaluation Comments Posture Comments Inc kyphosis & forward rounding of shoulders PT-OP-K Range of Motion Start: 01/24/19 16:32 Freq: Status: Active Protocol: Document 01/25/19 13:44 [facility] (Rec: 01/25/19 14:38 [facility] [id number]) Lumbar Spine Range of Motion Lumbar Spine Active Degrees Flexion 75 Extension 45 Lateral Flexion Left 35 Lateral Flexion Right 35 Comments pull in R side w/ext & L SB; WNL rotation Hip Goniometric Range of Motion Hip Measured in Degrees Right Passive Flexion w/Knee Flexed 60 Straight Leg Raise 50 Left Passive Testing Position Supine Flexion w/Knee Flexed 56 Straight Leg Raise 53 PT-OP-L Special Tests Start: 01/24/19 16:32 Freq: Status: Active Protocol: Document 01/25/19 13:44 [facility] (Rec: 01/25/19 14:38 [facility] [id number]) Special Tests Lumbar Spine Special Tests Slump Test Results +on R PT-OP-M Strength Start: 01/24/19 16:32 Freq: Status: Active Protocol: Document 01/25/19 13:44 [facility] (Rec: 01/25/19 14:38 [facility] [id number]) Hip Strength Hip Manual Muscle Testing Right Flexion (L2) 4 Good Extension (S1) 3+ Fair+ Abduction 5 Normal External Rotation 4 Good Internal Rotation 4 Good Comments pain w/ flex & IR Left Flexion (L2) 5 Normal Extension (S1) 3+ Fair+ Abduction 5 Normal External Rotation 4+ Good+ Internal Rotation 4+ Good+ Comments Pain w/IR & ER & ext Knee Strength Knee Manual Muscle Testing Right Flexion (S2) 5 Normal Extension (L3) 5 Normal Left Flexion (S2) 5 Normal Extension (L3) 5 Normal PT-OP-Q Treatments Start: 01/24/19 16:32 Freq: Status: Active Protocol: Document 02/24/19 10:30 [facility] (Rec: 02/24/19 13:21 [facility] [email or web address]) Therapeutic Exercises Supine Exercises OAL foam roll Supine Exercise Name OAL on foam roll. Equipment Used full foam roll. Reps/Minutes 10 3 Supine Exercise Name foam roll stretch Comments full 1 Supine Exercise Name transversus contract Reps/Minutes 5x10 hold Comments tends to bulge abs out mickey test Supine Exercise Name stretch Side bilateral Reps/Minutes 1-2 min Comments no nerve pain, manual stretch Prone Exercises 1 Prone Exercise Name cobra stretch Manual Therapy Treatment Soft Tissue Mobilization 3 Body Location adductor release Comments myofascial tightness felt at the pubic ramus attachment on the right ant abdomen Body Location ant abdomen direct pulls Mobilization Type Myofascial Release Intensity/Depth Superficial Body Position Supine Comments pelvic tilts, LE ER/ IR PT-OP-T Assessment and Plan Start: 01/24/19 16:32 Freq: Status: Active Protocol: Document 02/24/19 10:30 [facility] (Rec: 02/24/19 13:21 [facility] [email or web address]) Physical Therapy Assessment Goals pain Impairment pain Short Term Goal (STG) Pt will be indep with self myofascial release in order to work on scar restrictions at home. STG Duration 02/25/19 [facility] Goal (LTG) Pt will be able to have BM, sexual activity, workout and do his typical daily activities without inc pain. LTG Duration 03/27/19 strength Impairment strength Short Term Goal (STG) Pt will be indep with HEP STG Duration 02/25/19 [facility] Goal (LTG) Pt will have 5/5 B LE strength without pain allowing him to return to a gym program and lifting activities without pain. LTG Duration 03/27/19 range Impairment ROM Short Term Goal (STG) Pt will be able to inc hip ROM to 90 deg flex with knee bent without pain and feel HS stretch with SLR rather than ant groin/abdominal pain. STG Duration 02/25/19 [facility] Goal (LTG) Pt will be able to have enough hip ROM allowing him to sit in a chair extended without inc in pain. LTG Duration 03/27/19 Assessment Summary Assessment Pt tender with STM to the right adductor. Able to progress stretching without increase in C/O pain. Physical Therapy Plan Frequency and Duration Frequency of Treatment 2x/Week Duration of Treatment 2 months Plan of Care Start Date 01/25/19 Plan of Care End Date 03/27/19 Next Visit Focus/Plan Next Note Type Treatment Note Next Visit Plan continue to work on opening up the abdominal fascia and anterior ches. He can feel a stretch on the right side with right arm flexion so adding in stretching as tolerated would be beneficial
--- NOTE | 2019-02-28 17:17 | PT.OTN ---
Current Diagnoses Lower abdominal pain, unspecified (02/28/19) Physical Therapy Treatment Note PT-OP-A Visit Information Start: 01/24/19 16:32 Freq: Status: Active Protocol: Document 02/28/19 17:11 [facility] (Rec: 02/28/19 17:17 [facility] [id number]) Out-Patient Physical Therapy Visit Information Visit Information Visit Type Treatment Note Visit Start Time 13:00 Visit Stop Time 13:45 Total Visit Minutes 45 Visit Number 7 Number of STEEL ANALYST Visits 0 PT-OP-B Current Condition Start: 01/24/19 16:32 Freq: Status: Active Protocol: Document 01/25/19 13:44 [facility] (Rec: 01/25/19 14:38 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 When he came back 6 months later the pain had gotten bad and limited him signficantly. He tried PT where he did some light lifting and stretching, but it didn't help at all. Pt had surgery again Aug 08 2018 where they just replaced the mesh etc. [place] did cardio, manual, stretching & strenghtening. Pt reports if he sits too long , lifts, or flying pain is worse but its been constant. Pt reports if he pushed himself too far with PT, he would get a sharp pain. Treatment Goals Patient/Caregiver Goals Get back to hiking, be able to backpack, back to a physical training that he can lift weights PT-OP-C Subjective Start: 01/24/19 16:32 Freq: Status: Active Protocol: Document 02/28/19 17:11 [facility] (Rec: 02/28/19 17:17 [facility] [id number]) OP-PT Subjective Patient Comments Patient Comments Pt reports he is doing better with treatment. His greatest challange at this time is hip ER with flexion, he does note that he tends to cross his legs a lot with sitting as it has been a habit since he was a young child. PT-OP-F Manual Assessment Start: 01/24/19 16:32 Freq: Status: Active Protocol: Document 01/25/19 13:44 [facility] (Rec: 01/25/19 17:55 [facility] [id number]) Manual Assessments Soft Tissue Assessment Soft Tissue Mobility Assessment myofascial tightness across abdomen & lat iliac crests. Significant scar tissue formation under B scars with dec overall mobility Joint Mobility Assessment Joint Mobility Assessment Equal height illiac crests PT-OP-G Mobility & Gait Start: 01/24/19 16:32 Freq: Status: Active Protocol: Document 01/25/19 13:44 [facility] (Rec: 01/25/19 14:38 [facility] [id number]) OP Gait Assessment Comments Gait Comments Pt amb w/ stiffer and lack of pelvis movement on R jessie with excessive L rotation with push off. PT-OP-J Posture/Palpation/Skin Start: 01/24/19 16:32 Freq: Status: Active Protocol: Document 01/25/19 13:44 [facility] (Rec: 01/25/19 17:56 [facility] [id number]) Posture Evaluation Comments Posture Comments Inc kyphosis & forward rounding of shoulders PT-OP-K Range of Motion Start: 01/24/19 16:32 Freq: Status: Active Protocol: Document 01/25/19 13:44 [facility] (Rec: 01/25/19 14:38 [facility] [id number]) Lumbar Spine Range of Motion Lumbar Spine Active Degrees Flexion 75 Extension 45 Lateral Flexion Left 35 Lateral Flexion Right 35 Comments pull in R side w/ext & L SB; WNL rotation Hip Goniometric Range of Motion Hip Measured in Degrees Right Passive Flexion w/Knee Flexed 60 Straight Leg Raise 50 Left Passive Testing Position Supine Flexion w/Knee Flexed 56 Straight Leg Raise 53 PT-OP-L Special Tests Start: 01/24/19 16:32 Freq: Status: Active Protocol: Document 01/25/19 13:44 [facility] (Rec: 01/25/19 14:38 [facility] [id number]) Special Tests Lumbar Spine Special Tests Slump Test Results +on R PT-OP-M Strength Start: 01/24/19 16:32 Freq: Status: Active Protocol: Document 01/25/19 13:44 [facility] (Rec: 01/25/19 14:38 [facility] [id number]) Hip Strength Hip Manual Muscle Testing Right Flexion (L2) 4 Good Extension (S1) 3+ Fair+ Abduction 5 Normal External Rotation 4 Good Internal Rotation 4 Good Comments pain w/ flex & IR Left Flexion (L2) 5 Normal Extension (S1) 3+ Fair+ Abduction 5 Normal External Rotation 4+ Good+ Internal Rotation 4+ Good+ Comments Pain w/IR & ER & ext Knee Strength Knee Manual Muscle Testing Right Flexion (S2) 5 Normal Extension (L3) 5 Normal Left Flexion (S2) 5 Normal Extension (L3) 5 Normal PT-OP-Q Treatments Start: 01/24/19 16:32 Freq: Status: Active Protocol: Document 02/28/19 17:11 [facility] (Rec: 02/28/19 17:17 [facility] [email or web address]) Therapeutic Exercises Supine Exercises 4 Supine Exercise Name TA with marches Comments bulges abdominal wall with level lb 3 Supine Exercise Name foam roll stretch Comments full 1 Supine Exercise Name transversus contract Reps/Minutes 5x10 hold Comments tends to bulge abs out mickey test Supine Exercise Name stretch Side bilateral Reps/Minutes 1-2 min Comments no nerve pain, manual stretch Prone Exercises 1 Prone Exercise Name cobra stretch Manual Therapy Treatment Soft Tissue Mobilization 3 Body Location adductor release Comments myofascial tightness felt at the pubic ramus attachment on the right ant abdomen Body Location ant abdomen direct pulls Mobilization Type Myofascial Release Intensity/Depth Superficial Body Position Supine Comments pelvic tilts, LE ER/ IR Joint Mobilizations hip Joint hip Direction inf functional mobilization (c /r) B PT-OP-T Assessment and Plan Start: 01/24/19 16:32 Freq: Status: Active Protocol: Document 02/28/19 17:11 [facility] (Rec: 02/28/19 17:17 [facility] [id number]) Physical Therapy Assessment Assessment Summary Assessment worked on right adductor again today and hip mobilizations for hip ER with flexion as this causes increased c/o discomfort. He is tolerating treatment well and is waiting for his foam roll to arrive Physical Therapy Plan Frequency and Duration Frequency of Treatment 2x/Week Duration of Treatment 2 months Plan of Care Start Date 01/25/19 Plan of Care End Date 03/27/19 Therapeutic Interventions Therapeutic Interventions Aquatic Therapy Gait Training Home Exercise Program Joint Mobilizations Manual Therapy Neuromuscular Re-education Self-Care/Home Management Soft Tissue Mobilization Taping Therapeutic Activities Therapeutic Exercises Modalities Biofeedback Cold Pack/Ice Massage Hot Packs Next Visit Focus/Plan Next Note Type Treatment Note Next Visit Plan reassess hip ROM next visit, progress lumbar stabilization without pelvic rocking
--- NOTE | 2019-03-02 17:55 | PT.OTN ---
Current Diagnoses Lower abdominal pain, unspecified (03/02/19) Physical Therapy Treatment Note PT-OP-A Visit Information Start: 01/24/19 16:32 Freq: Status: Active Protocol: Document 03/02/19 17:40 [facility] (Rec: 03/02/19 17:55 [facility] [id number]) Out-Patient Physical Therapy Visit Information Visit Information Visit Type Treatment Note Visit Start Time 13:45 Visit Stop Time 14:30 Total Visit Minutes 45 Visit Number 8 Number of DIRECTOR OF RECRUITMENT AND ADMISSIONS Visits 0 PT-OP-B Current Condition Start: 01/24/19 16:32 Freq: Status: Active Protocol: Document 01/25/19 13:44 [facility] (Rec: 01/25/19 14:38 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 When he came back 6 months later the pain had gotten bad and limited him signficantly. He tried PT where he did some light lifting and stretching, but it didn't help at all. Pt had surgery again Aug 08 2018 where they just replaced the mesh etc. [place] cardio, manual, stretching & strenghtening. Pt reports if he sits too long , lifts, or flying pain is worse but its been constant. Pt reports if he pushed himself too far with PT, he would get a sharp pain. Treatment Goals Patient/Caregiver Goals Get back to hiking, be able to backpack, back to a physical training that he can lift weights PT-OP-C Subjective Start: 01/24/19 16:32 Freq: Status: Active Protocol: Document 03/02/19 17:40 [facility] (Rec: 03/02/19 17:55 [facility] [id number]) OP-PT Subjective Patient Comments Patient Comments Placdio reports he was a little flared after tuesdays appt but by wednesday he felt okay. He has been able to work on his stabilization exercises at home PT-OP-F Manual Assessment Start: 01/24/19 16:32 Freq: Status: Active Protocol: Document 01/25/19 13:44 [facility] (Rec: 01/25/19 17:55 [facility] [id number]) Manual Assessments Soft Tissue Assessment Soft Tissue Mobility Assessment myofascial tightness across abdomen & lat iliac crests. Significant scar tissue formation under B scars with dec overall mobility Joint Mobility Assessment Joint Mobility Assessment Equal height illiac crests PT-OP-G Mobility & Gait Start: 01/24/19 16:32 Freq: Status: Active Protocol: Document 01/25/19 13:44 [facility] (Rec: 01/25/19 14:38 [facility] [id number]) OP Gait Assessment Comments Gait Comments Pt amb w/ stiffer and lack of pelvis movement on R jessie with excessive L rotation with push off. PT-OP-J Posture/Palpation/Skin Start: 01/24/19 16:32 Freq: Status: Active Protocol: Document 01/25/19 13:44 [facility] (Rec: 01/25/19 17:56 [facility] [id number]) Posture Evaluation Comments Posture Comments Inc kyphosis & forward rounding of shoulders PT-OP-K Range of Motion Start: 01/24/19 16:32 Freq: Status: Active Protocol: Document 01/25/19 13:44 [facility] (Rec: 01/25/19 14:38 [facility] [id number]) Lumbar Spine Range of Motion Lumbar Spine Active Degrees Flexion 75 Extension 45 Lateral Flexion Left 35 Lateral Flexion Right 35 Comments pull in R side w/ext & L SB; WNL rotation Hip Goniometric Range of Motion Hip Measured in Degrees Right Passive Flexion w/Knee Flexed 60 Straight Leg Raise 50 Left Passive Testing Position Supine Flexion w/Knee Flexed 56 Straight Leg Raise 53 PT-OP-L Special Tests Start: 01/24/19 16:32 Freq: Status: Active Protocol: Document 01/25/19 13:44 [facility] (Rec: 01/25/19 14:38 [facility] [id number]) Special Tests Lumbar Spine Special Tests Slump Test Results +on R PT-OP-M Strength Start: 01/24/19 16:32 Freq: Status: Active Protocol: Document 01/25/19 13:44 [facility] (Rec: 01/25/19 14:38 [facility] [id number]) Hip Strength Hip Manual Muscle Testing Right Flexion (L2) 4 Good Extension (S1) 3+ Fair+ Abduction 5 Normal External Rotation 4 Good Internal Rotation 4 Good Comments pain w/ flex & IR Left Flexion (L2) 5 Normal Extension (S1) 3+ Fair+ Abduction 5 Normal External Rotation 4+ Good+ Internal Rotation 4+ Good+ Comments Pain w/IR & ER & ext Knee Strength Knee Manual Muscle Testing Right Flexion (S2) 5 Normal Extension (L3) 5 Normal Left Flexion (S2) 5 Normal Extension (L3) 5 Normal PT-OP-Q Treatments Start: 01/24/19 16:32 Freq: Status: Active Protocol: Document 03/02/19 17:40 [facility] (Rec: 03/02/19 17:55 [facility] [email or web address]) Therapeutic Exercises Supine Exercises 4 Supine Exercise Name TA with marches Comments able to perform both level 1 a and b mickey test Supine Exercise Name stretch Side bilateral Reps/Minutes 1-2 min Comments no nerve pain, manual stretch Prone Exercises 2 Prone Exercise Name TA facilitation with opp arm and leg Reps/Minutes x 10 reps Comments verbal cues for core activation 1 Prone Exercise Name cobra stretch Comments added in alternating knee flexion for dynamic quad stretch Other Exercises 2 Other Exercise Name quadraped rock backs for hip hinge Comments worked on seating the femoral head on the right with rock back 1 Other Exercise Name cat cow Reps/Minutes x 10 reps Manual Therapy Treatment Joint Mobilizations hip Joint hip Direction inf functional mobilization (c /r) B Manual Traction Long axis distraction Details R Body Position Supine Reps/Duration 15x2 Manual Techniques 1 Type manual quad and piriformis stretch PT-OP-T Assessment and Plan Start: 01/24/19 16:32 Freq: Status: Active Protocol: Document 03/02/19 17:40 [facility] (Rec: 03/02/19 17:55 [facility] [email or web address]) Physical Therapy Assessment Assessment Summary Assessment tolerating more today, able to perform level 1 b lower abdominal progression, began adding opp arm and leg in prone and prone knee flexion wihtout pain Physical Therapy Plan Frequency and Duration Frequency of Treatment 2x/Week Duration of Treatment 2 months Plan of Care Start Date 01/25/19 Plan of Care End Date 03/27/19 Therapeutic Interventions Therapeutic Interventions Aquatic Therapy Gait Training Home Exercise Program Joint Mobilizations Manual Therapy Neuromuscular Re-education Self-Care/Home Management Soft Tissue Mobilization Taping Therapeutic Activities Therapeutic Exercises Modalities Biofeedback Cold Pack/Ice Massage Hot Packs Next Visit Focus/Plan Next Note Type Treatment Note Next Visit Plan continue progressing pelvic stabilization, improving fascial mobility in the anterior abdominal wall and hips, work on seating the femoral head as Placido is still having hip impingement symptoms on the left
--- NOTE | 2019-03-07 16:15 | PT.OTN ---
Current Diagnoses Lower abdominal pain, unspecified (03/07/19) Physical Therapy Treatment Note PT-OP-A Visit Information Start: 01/24/19 16:32 Freq: Status: Active Protocol: Document 03/07/19 15:17 [facility] (Rec: 03/07/19 15:35 [facility] [email or web address]) Out-Patient Physical Therapy Visit Information Visit Information Visit Type Treatment Note Visit Start Time 13:45 Visit Stop Time 14:35 Total Visit Minutes 50 Visit Number 9 Number of P[employer]ET [employer] Visits 0 PT-OP-B Current Condition Start: 01/24/19 16:32 Freq: Status: Active Protocol: Document 01/25/19 13:44 [facility] (Rec: 01/25/19 14:38 [facility] [id number]) Current Condition History of Current Condition History of Current Condition January 2017 he had a double inguinal hernia repair and 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 When he came back 6 months later the pain had gotten bad and limited him signficantly. He tried PT where he did some light lifting and stretching, but it didn't help at all. Pt had surgery again Aug 08 2018 where they just replaced the mesh etc. [place] did cardio, manual, stretching & strenghtening. Pt reports if he sits too long , lifts, or flying pain is worse but its been constant. Pt reports if he pushed himself too far with PT, he would get a sharp pain. Treatment Goals Patient/Caregiver Goals Get back to hiking, be able to backpack, back to a physical training that he can lift weights PT-OP-C Subjective Start: 01/24/19 16:32 Freq: Status: Active Protocol: Document 03/07/19 15:17 [facility] (Rec: 03/07/19 15:35 [facility] [email or web address]) OP-PT Subjective Patient Comments Patient Comments Placido states that he has been pretty flared up the last few days, unsure as to what exactly he did. The stretches feel good during, but afterward he has had some pulsating pain around R hernia incision. PT-OP-F Manual Assessment Start: 01/24/19 16:32 Freq: Status: Active Protocol: Document 01/25/19 13:44 [facility] (Rec: 01/25/19 17:55 [facility] [email or web address]) Manual Assessments Soft Tissue Assessment Soft Tissue Mobility Assessment myofascial tightness across abdomen & lat iliac crests. Significant scar tissue formation under B scars with dec overall mobility Joint Mobility Assessment Joint Mobility Assessment Equal height illiac crests PT-OP-G Mobility & Gait Start: 01/24/19 16:32 Freq: Status: Active Protocol: Document 01/25/19 13:44 [facility] (Rec: 01/25/19 14:38 [facility] [id number]) OP Gait Assessment Comments Gait Comments Pt amb w/ stiffer and lack of pelvis movement on R jessie with excessive L rotation with push off. PT-OP-J Posture/Palpation/Skin Start: 01/24/19 16:32 Freq: Status: Active Protocol: Document 01/25/19 13:44 [facility] (Rec: 01/25/19 17:56 [facility] [id number]) Posture Evaluation Comments Posture Comments Inc kyphosis & forward rounding of shoulders PT-OP-K Range of Motion Start: 01/24/19 16:32 Freq: Status: Active Protocol: Document 01/25/19 13:44 [facility] (Rec: 01/25/19 14:38 [facility] [id number]) Lumbar Spine Range of Motion Lumbar Spine Active Degrees Flexion 75 Extension 45 Lateral Flexion Left 35 Lateral Flexion Right 35 Comments pull in R side w/ext & L SB; WNL rotation Hip Goniometric Range of Motion Hip Measured in Degrees Right Passive Flexion w/Knee Flexed 60 Straight Leg Raise 50 Left Passive Testing Position Supine Flexion w/Knee Flexed 56 Straight Leg Raise 53 PT-OP-L Special Tests Start: 01/24/19 16:32 Freq: Status: Active Protocol: Document 01/25/19 13:44 [facility] (Rec: 01/25/19 14:38 [facility] [id number]) Special Tests Lumbar Spine Special Tests Slump Test Results +on R PT-OP-M Strength Start: 01/24/19 16:32 Freq: Status: Active Protocol: Document 01/25/19 13:44 [facility] (Rec: 01/25/19 14:38 [facility] [id number]) Hip Strength Hip Manual Muscle Testing Right Flexion (L2) 4 Good Extension (S1) 3+ Fair+ Abduction 5 Normal External Rotation 4 Good Internal Rotation 4 Good Comments pain w/ flex & IR Left Flexion (L2) 5 Normal Extension (S1) 3+ Fair+ Abduction 5 Normal External Rotation 4+ Good+ Internal Rotation 4+ Good+ Comments Pain w/IR & ER & ext Knee Strength Knee Manual Muscle Testing Right Flexion (S2) 5 Normal Extension (L3) 5 Normal Left Flexion (S2) 5 Normal Extension (L3) 5 Normal PT-OP-Q Treatments Start: 01/24/19 16:32 Freq: Status: Active Protocol: Document 03/07/19 15:17 [facility] (Rec: 03/07/19 15:35 [facility] [email or web address]) Therapeutic Exercises Supine Exercises 6 Supine Exercise Name Posterior Pelvic Tilts Reps/Minutes x10 5 Supine Exercise Name Supine clam Equipment Used #2 band Reps/Minutes x20 Comments TA contraction 4 Supine Exercise Name TA 1a and 1b Reps/Minutes x8 each 1 Supine Exercise Name transversus contract Reps/Minutes 5x10 hold Comments tends to bulge abs out mickey test Supine Exercise Name stretch Side left Reps/Minutes 1-2 min, off edge of table Comments no nerve pain, manual stretch Prone Exercises 2 Prone Exercise Name TA facilitation with opp arm and leg Reps/Minutes x 15 reps Comments TCs at pelvis to avoid rotation Other Exercises 2 Other Exercise Name quadraped rock backs for hip hinge Reps/Minutes x15 Comments R femoral head seating 1 Other Exercise Name cat cow Reps/Minutes x 10 reps Manual Therapy Treatment Soft Tissue Mobilization ant abdomen Body Location Ant R abdomen Mobilization Type Myofascial Release Rolling Intensity/Depth Moderate Body Position Supine Joint Mobilizations hip Joint hip Direction posterior Grade III Comments posterior with R hip/knee flexion to ~80 deg Manual Traction Long axis distraction Details R Body Position Supine Reps/Duration 15x2 Manual Techniques 1 Type manual hip IR/ER Comments pain free range, PROM with long axis distraction PT-OP-T Assessment and Plan Start: 01/24/19 16:32 Freq: Status: Active Protocol: Document 03/07/19 15:17 [facility] (Rec: 03/07/19 15:35 [facility] [email or web address]) Physical Therapy Assessment Assessment Summary Assessment Pt to PT c/o increased R hip pain the last few days and following stretches. He tolerated core stabilization exercises today without an increase in pain. Continued hip mobilizations and stretching within pain free range, ending with STM to R lower abdomen. Pt with less pain, 3/10 at end of sesssion. Physical Therapy Plan Frequency and Duration Frequency of Treatment 2x/Week Duration of Treatment 2 months Plan of Care Start Date 01/25/19 Plan of Care End Date 03/27/19 Therapeutic Interventions Therapeutic Interventions Aquatic Therapy Gait Training Home Exercise Program Joint Mobilizations Manual Therapy Neuromuscular Re-education Self-Care/Home Management Soft Tissue Mobilization Taping Therapeutic Activities Therapeutic Exercises Modalities Biofeedback Cold Pack/Ice Massage Hot Packs Next Visit Focus/Plan Next Note Type Treatment Note Next Visit Plan Continue with core stablization as tolerated by pt and myofascial techniques for R anterior abdomen.
--- NOTE | 2019-03-09 17:07 | PT.OTN ---
Current Diagnoses Lower abdominal pain, unspecified (03/09/19) Physical Therapy Treatment Note PT-OP-A Visit Information Start: 01/24/19 16:32 Freq: Status: Active Protocol: Document 03/09/19 16:59 [facility] (Rec: 03/09/19 17:07 [facility] [email or web address]) Out-Patient Physical Therapy Visit Information Visit Information Visit Type Treatment Note Visit Start Time 13:00 Visit Stop Time 13:45 Total Visit Minutes 45 Visit Number 10 Number of SUPER[employer] Visits 0 PT-OP-B Current Condition Start: 01/24/19 16:32 Freq: Status: Active Protocol: Document 01/25/19 13:44 [facility] (Rec: 01/25/19 14:38 [facility] [id number]) Current Condition History of Current Condition History of Current Condition January 2017 he had a double inguinal hernia repair and 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 When he came back 6 months later the pain had gotten bad and limited him signficantly. He tried PT where he did some light lifting and stretching, but it didn't help at all. Pt had surgery again Aug 08 2018 where they just replaced the mesh etc. [place] did cardio, manual, stretching & strenghtening. Pt reports if he sits too long , lifts, or flying pain is worse but its been constant. Pt reports if he pushed himself too far with PT, he would get a sharp pain. Treatment Goals Patient/Caregiver Goals Get back to hiking, be able to backpack, back to a physical training that he can lift weights PT-OP-C Subjective Start: 01/24/19 16:32 Freq: Status: Active Protocol: Document 03/09/19 16:59 [facility] (Rec: 03/09/19 17:07 [facility] [email or web address]) OP-PT Subjective Patient Comments Patient Comments Placido states he is still a little flared on his right side. He can feel pressure on this side. PT-OP-F Manual Assessment Start: 01/24/19 16:32 Freq: Status: Active Protocol: Document 01/25/19 13:44 [facility] (Rec: 01/25/19 17:55 [facility] [id number]) Manual Assessments Soft Tissue Assessment Soft Tissue Mobility Assessment myofascial tightness across abdomen & lat iliac crests. Significant scar tissue formation under B scars with dec overall mobility Joint Mobility Assessment Joint Mobility Assessment Equal height illiac crests PT-OP-G Mobility & Gait Start: 01/24/19 16:32 Freq: Status: Active Protocol: Document 01/25/19 13:44 [facility] (Rec: 01/25/19 14:38 [facility] [id number]) OP Gait Assessment Comments Gait Comments Pt amb w/ stiffer and lack of pelvis movement on R jessie with excessive L rotation with push off. PT-OP-J Posture/Palpation/Skin Start: 01/24/19 16:32 Freq: Status: Active Protocol: Document 01/25/19 13:44 [facility] (Rec: 01/25/19 17:56 [facility] [id number]) Posture Evaluation Comments Posture Comments Inc kyphosis & forward rounding of shoulders PT-OP-K Range of Motion Start: 01/24/19 16:32 Freq: Status: Active Protocol: Document 01/25/19 13:44 [facility] (Rec: 01/25/19 14:38 [facility] [id number]) Lumbar Spine Range of Motion Lumbar Spine Active Degrees Flexion 75 Extension 45 Lateral Flexion Left 35 Lateral Flexion Right 35 Comments pull in R side w/ext & L SB; WNL rotation Hip Goniometric Range of Motion Hip Measured in Degrees Right Passive Flexion w/Knee Flexed 60 Straight Leg Raise 50 Left Passive Testing Position Supine Flexion w/Knee Flexed 56 Straight Leg Raise 53 PT-OP-L Special Tests Start: 01/24/19 16:32 Freq: Status: Active Protocol: Document 01/25/19 13:44 [facility] (Rec: 01/25/19 14:38 [facility] [id number]) Special Tests Lumbar Spine Special Tests Slump Test Results +on R PT-OP-M Strength Start: 01/24/19 16:32 Freq: Status: Active Protocol: Document 01/25/19 13:44 [facility] (Rec: 01/25/19 14:38 [facility] [id number]) Hip Strength Hip Manual Muscle Testing Right Flexion (L2) 4 Good Extension (S1) 3+ Fair+ Abduction 5 Normal External Rotation 4 Good Internal Rotation 4 Good Comments pain w/ flex & IR Left Flexion (L2) 5 Normal Extension (S1) 3+ Fair+ Abduction 5 Normal External Rotation 4+ Good+ Internal Rotation 4+ Good+ Comments Pain w/IR & ER & ext Knee Strength Knee Manual Muscle Testing Right Flexion (S2) 5 Normal Extension (L3) 5 Normal Left Flexion (S2) 5 Normal Extension (L3) 5 Normal PT-OP-Q Treatments Start: 01/24/19 16:32 Freq: Status: Active Protocol: Document 03/09/19 16:59 [facility] (Rec: 03/09/19 17:07 [facility] [email or web address]) Cardio Equipment Recumbent Elliptical ([employer]) Duration (Minutes) 5 Therapeutic Exercises Supine Exercises 2 Supine Exercise Name pelvic floor contractions Comments isolation without adductor contraction on the right as this causes pain 1 Supine Exercise Name transversus contract Reps/Minutes 5x10 hold Comments cues to keep adductors relaxed mickey test Supine Exercise Name stretch Side left Reps/Minutes 1-2 min, off edge of table Comments no nerve pain, manual stretch Standing Exercises 1 Standing Exercise Name standing posture education on seating the femoral head in standing Other Exercises 2 Other Exercise Name quadraped rock backs for hip hinge Reps/Minutes x15 Comments R femoral head seating 1 Other Exercise Name cat cow Reps/Minutes x 10 reps Manual Therapy Treatment Soft Tissue Mobilization 3 Body Location adductor release Comments myofascial tightness felt at the pubic ramus attachment on the right Joint Mobilizations hip Joint hip Direction posterior Grade III Comments posterior with R hip/knee flexion to ~80 deg Manual Traction Long axis distraction Details R Body Position Supine Reps/Duration 15x2 Manual Techniques 1 Type manual hip IR/ER Comments pain free range, PROM with long axis distraction PT-OP-T Assessment and Plan Start: 01/24/19 16:32 Freq: Status: Active Protocol: Document 03/09/19 16:59 [facility] (Rec: 03/09/19 17:07 [facility] [email or web address]) Physical Therapy Assessment Assessment Summary Assessment Placido did well with postural cues today to seat the femoral head in standing. He also tends to use his adductors when attempting a pelvic floor contraction. With tactile cues to lift his pelvic floor and avoid adductor contraction he didn't feel the inguinal pain. Physical Therapy Plan Frequency and Duration Frequency of Treatment 2x/Week Duration of Treatment 2 months Plan of Care Start Date 01/25/19 Plan of Care End Date 03/27/19 Therapeutic Interventions Therapeutic Interventions Aquatic Therapy Gait Training Home Exercise Program Joint Mobilizations Manual Therapy Neuromuscular Re-education Self-Care/Home Management Soft Tissue Mobilization Taping Therapeutic Activities Therapeutic Exercises Modalities Biofeedback Cold Pack/Ice Massage Hot Packs Next Visit Focus/Plan Next Note Type Treatment Note Next Visit Plan review standing posture to avoid hanging on his anterior hips and work on hip hinging positions. Pelvic floor isolation without adductor contraction on the right
--- NOTE | 2019-06-29 09:11 | PT.OPDS ---
Current Diagnoses Lower abdominal pain, unspecified (03/09/19) Provider Visit Care Team Role Provider Type Stefano Bull Attending Provider Non-Staff Primary Care Provider Specialty: Medical Address: [facility] [employer] [facility], [address] [place], [place] [address] [address], [place], [address] Fax: Email: Visit Number Visit Number 10 Discharge Summary PT-OP-B Current Condition Start: 01/24/19 16:32 Freq: Status: Active Protocol: Document 01/25/19 13:44 [facility] (Rec: 01/25/19 14:38 [facility] [id number]) Current Condition History of Current Condition History of Current Condition January 2017 he had a double inguinal hernia repair and 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 When he came back 6 months later the pain had gotten bad and limited him signficantly. He tried PT where he did some light lifting and stretching, but it didn't help at all. Pt had surgery again Aug 08 2018 where they just replaced the mesh etc. [place] did cardio, manual, stretching & strenghtening. Pt reports if he sits too long , lifts, or flying pain is worse but its been constant. Pt reports if he pushed himself too far with PT, he would get a sharp pain. Treatment Goals Patient/Caregiver Goals Get back to hiking, be able to backpack, back to a physical training that he can lift weights PT-OP-C Subjective Start: 01/24/19 16:32 Freq: Status: Active Protocol: Document 03/09/19 16:59 [facility] (Rec: 03/09/19 17:07 [facility] [email or web address]) OP-PT Subjective Patient Comments Patient Comments Placido states he is still a little flared on his right side. He can feel pressure on this side. PT-OP-F Manual Assessment Start: 01/24/19 16:32 Freq: Status: Active Protocol: Document 01/25/19 13:44 [facility] (Rec: 01/25/19 17:55 [facility] [id number]) Manual Assessments Soft Tissue Assessment Soft Tissue Mobility Assessment myofascial tightness across abdomen & lat iliac crests. Significant scar tissue formation under B scars with dec overall mobility Joint Mobility Assessment Joint Mobility Assessment Equal height illiac crests PT-OP-G Mobility & Gait Start: 01/24/19 16:32 Freq: Status: Active Protocol: Document 01/25/19 13:44 [facility] (Rec: 01/25/19 14:38 [facility] [id number]) OP Gait Assessment Comments Gait Comments Pt amb w/ stiffer and lack of pelvis movement on R jessie with excessive L rotation with push off. PT-OP-J Posture/Palpation/Skin Start: 01/24/19 16:32 Freq: Status: Active Protocol: Document 01/25/19 13:44 [facility] (Rec: 01/25/19 17:56 [facility] [id number]) Posture Evaluation Comments Posture Comments Inc kyphosis & forward rounding of shoulders PT-OP-K Range of Motion Start: 01/24/19 16:32 Freq: Status: Active Protocol: Document 01/25/19 13:44 [facility] (Rec: 01/25/19 14:38 [facility] [id number]) Lumbar Spine Range of Motion Lumbar Spine Active Degrees Flexion 75 Extension 45 Lateral Flexion Left 35 Lateral Flexion Right 35 Comments pull in R side w/ext & L SB; WNL rotation Hip Goniometric Range of Motion Hip Right Passive Flexion w/Knee Flexed 60 Straight Leg Raise 50 Left Passive Testing Position Supine Flexion w/Knee Flexed 56 Straight Leg Raise 53 PT-OP-L Special Tests Start: 01/24/19 16:32 Freq: Status: Active Protocol: Document 01/25/19 13:44 [facility] (Rec: 01/25/19 14:38 [facility] [id number]) Special Tests Lumbar Spine Special Tests Slump Test Results +on R PT-OP-M Strength Start: 01/24/19 16:32 Freq: Status: Active Protocol: Document 01/25/19 13:44 [facility] (Rec: 01/25/19 14:38 [facility] [id number]) Hip Strength Hip Manual Muscle Testing Right Flexion (L2) 4 Good Extension (S1) 3+ Fair+ Abduction 5 Normal External Rotation 4 Good Internal Rotation 4 Good Comments pain w/ flex & IR Left Flexion (L2) 5 Normal Extension (S1) 3+ Fair+ Abduction 5 Normal External Rotation 4+ Good+ Internal Rotation 4+ Good+ Comments Pain w/IR & ER & ext Knee Strength Knee Manual Muscle Testing Right Flexion (S2) 5 Normal Extension (L3) 5 Normal Left Flexion (S2) 5 Normal Extension (L3) 5 Normal PT-OP-T Assessment and Plan Start: 01/24/19 16:32 Freq: Status: Active Protocol: Document 06/29/19 08:13 [facility] (Rec: 06/29/19 09:11 [facility] [id number]) Physical Therapy Plan Discharge Physical Therapy Discharge Reasons No Longer Attending PT Discharge Comments Pt no showed last 2 appointments. He was called and left messages re: sessions but pt did not follow up to reschedule. d/c PT
== END 2019-06-30 09:08 | disposition home or self-care (01) ==
LOC: PHYS 13:00
PROVIDERS: PCP Preventive Medicine Public Health & General Preventive Medicine; Visit Provider Preventive Medicine Public Health & General Preventive Medicine
DX: R10.30 Lower abdominal pain, unspecified (principal)
CPT/HCPCS: 97110; 97140; 97162; 97530